=== PATIENT | female | born 1965 ===

== ENCOUNTER 2024-01-08 11:34 | Emergency (ER) | payer SELFPAY ==
[2024-01-08] MEDS: Diphtheria,Pertussis(Acell),Tetanus Vaccine 0.5 ML Syringe IM ONE (12:25)
[2024-01-08] MEDS: Lidocaine 2% 5 ML SDV INJECT ONE (12:27)
== END 2024-01-08 13:49 | disposition home or self-care (01) ==
LOC: EDBD 11:34 → MW.ED 11:34
DX: S01.412A Laceration without foreign body of left cheek and temporomandibular area, initial encounter (principal); S16.1XXA Strain of muscle, fascia and tendon at neck level, initial encounter; Z23 Encounter for immunization; V49.40XA Driver injured in collision with unspecified motor vehicles in traffic accident, initial encounter
CPT/HCPCS: 12014; 70450; 70450-26; 72125; 72125-26; 73030-26-LT; 73030-LT; 73630-26-RT; 73630-RT; 90471; 90715; 99283; 99285-25; J3490

== ENCOUNTER 2024-01-14 08:17 | Emergency (ER) | payer SELFPAY | END 2024-01-14 09:12 | disposition home or self-care (01) | LOC: MW.ED 08:17 | DX: S01.412D Laceration without foreign body of left cheek and temporomandibular area, subsequent encounter (principal); R42 Dizziness and giddiness; F07.81 Postconcussional syndrome; V89.2XXD Person injured in unspecified motor-vehicle accident, traffic, subsequent encounter | CPT/HCPCS: 99282; 99283 ==